=== PATIENT | female | born 1965 ===

== ENCOUNTER 2021-06-22 01:03 | Emergency (ER) | payer MEDICAID ==
[~2021-06-22] VITALS: Ht 180.3 cm; Wt 87.0 kg
[2021-06-22 01:33] VITALS: BP 125/71
== END 2021-06-22 03:31 | disposition left against medical advice (07) ==
LOC: ER 01:03
DX: Z53.21 Procedure and treatment not carried out due to patient leaving prior to being seen by health care provider (principal)